=== PATIENT | male | born 1990 | race African-American/Black ===

== ENCOUNTER 2016-03-25 10:29 | Emergency (ER) | payer MEDICAID ==
[~2016-03-25] VITALS: Ht 195.6 cm; Wt 95.3 kg
[2016-03-25 11:25] VITALS: BP 142/82
== END 2016-03-25 12:08 | disposition home or self-care (01) ==
LOC: ER 10:44
DX: G43.909 Migraine, unspecified, not intractable, without status migrainosus (principal); F17.210 Nicotine dependence, cigarettes, uncomplicated

== ENCOUNTER 2016-07-22 09:29 | Emergency (ER) | payer SELFPAY ==
[~2016-07-22] VITALS: Ht 195.6 cm; Wt 97.5 kg
[2016-07-22 09:50] VITALS: BP 129/80
== END 2016-07-22 10:28 | disposition home or self-care (01) ==
LOC: ER 09:29
DX: S39.012A Strain of muscle, fascia and tendon of lower back, initial encounter (principal); F17.210 Nicotine dependence, cigarettes, uncomplicated; X50.0XXA Overexertion from strenuous movement or load, initial encounter; Y93.89 Activity, other specified; Y99.8 Other external cause status; Y92.512 Supermarket, store or market as the place of occurrence of the external cause

== ENCOUNTER 2018-06-21 15:02 | Emergency (ER) | payer MEDICAID, OTHER ==
[~2018-06-21] VITALS: Ht 195.6 cm; Wt 99.8 kg
[2018-06-21 16:10] VITALS: BP 127/77
== END 2018-06-21 17:13 | disposition home or self-care (01) ==
LOC: ER 15:06
DX: G43.909 Migraine, unspecified, not intractable, without status migrainosus (principal); F17.210 Nicotine dependence, cigarettes, uncomplicated; Z76.0 Encounter for issue of repeat prescription

== ENCOUNTER 2018-08-21 12:37 | Emergency (ER) | payer OTHER ==
[~2018-08-21] VITALS: Ht 195.6 cm; Wt 99.8 kg
[2018-08-21 13:08] VITALS: BP 133/85
== END 2018-08-21 13:36 | disposition home or self-care (01) ==
LOC: ER 12:37
DX: K13.0 Diseases of lips (principal); F17.210 Nicotine dependence, cigarettes, uncomplicated